=== PATIENT | male | born 1980 | race Caucasian/White ===

== ENCOUNTER 2022-08-24 22:55 | Emergency (ER) | payer OTHER ==
[~2022-08-24 22:55] MED LIST: Sulfamethoxazole/Trimethoprim 800-160 MG Tab ONE
[2022-08-24] MEDS ORDERED: cefTRIAXone 1 GM Vial IM ONE (23:49)
[2022-08-24] MEDS ORDERED: Lidocaine 1% 10 ML MDV INJECT ONE (23:50)
== END 2022-08-25 | disposition home or self-care (01) ==
LOC: LB.ED 22:55
DX: L08.9 Local infection of the skin and subcutaneous tissue, unspecified (principal); Z72.0 Tobacco use
CPT/HCPCS: 96372; 99283; J0696